=== PATIENT | male | born 1965 | race Caucasian/White ===

== ENCOUNTER → 2024-06-14 | Outpatient (REF) | payer MEDICARE, MEDICAID | LOC: LAB 13:25 | DX: K13.0 Diseases of lips (principal) ==

== ENCOUNTER → 2024-06-23 | Outpatient (CLI) | payer MEDICARE, MEDICAID | LOC: RAD 10:50 | DX: L02.11 Cutaneous abscess of neck (principal) ==

== ENCOUNTER → 2024-08-10 | Outpatient (REF) | payer MEDICARE, MEDICAID | LOC: LAB 12:17 | DX: E06.9 Thyroiditis, unspecified (principal) ==

== ENCOUNTER → 2024-09-17 | Outpatient (CLI) | payer MEDICARE, MEDICAID ==
[2024-09-17 10:22] LABS: BASO # 0.05 K/mm3 (0.02-0.10); EOS # 0.13 K/mm3 (0.04-0.40); EOS % 1.4 % (0.0-4.0); HEMATOCRIT 47.5 % (42.0-52.0); HEMOGLOBIN 13.7 g/dL (13.5-18.0); LYMPH# 1.95 K/mm3 (1.50-4.00); MEAN CELL VOLUME 85 fl (78-100); MEAN CORPUSCULAR HEMOGLOBIN 25 pg (27-31); MEAN CORPUSCULAR HGB CONC 29 g/dL (33-37); MEAN PLATELET VOLUME 10.7 fl (7.4-10.4); MONO # 0.61 K/mm3 (0.20-0.80); NEU # 6.42 K/mm3 (1.40-6.50); PLATELET COUNT 342 K/mm3 (130-400); RED BLOOD COUNT 5.56 M/mm3 (4.20-5.60); WHITE BLOOD COUNT 9.2 K/mm3 (4.8-10.8)
[2024-09-17 10:33] LABS: CALCIUM 9.3 mg/dL (8.3-10.5)
== END ==
LOC: LAB 09:35
DX: R09.02 Hypoxemia (principal)

== ENCOUNTER → 2024-10-14 | Outpatient (CLI) | payer MEDICARE, MEDICAID | LOC: LAB 13:47 | DX: E11.9 Type 2 diabetes mellitus without complications (principal) ==

== ENCOUNTER → 2024-10-18 | Outpatient (REF) | payer MEDICARE, MEDICAID | LOC: LAB 11:27 | DX: F25.0 Schizoaffective disorder, bipolar type (principal) ==

== ENCOUNTER → 2024-11-02 | Outpatient (REF) | payer MEDICARE, MEDICAID | LOC: LAB 10:43 | DX: F25.0 Schizoaffective disorder, bipolar type (principal) ==

== ENCOUNTER → 2024-11-04 | Outpatient (REF) | payer MEDICARE, MEDICAID | LOC: LAB 13:35 | DX: F25.0 Schizoaffective disorder, bipolar type (principal) ==

== ENCOUNTER → 2024-12-13 | Outpatient (REF) | payer OTHER, MEDICAID ==
[2024-12-13 11:37] LABS: BASO # 0.02 K/mm3 (0.02-0.10); EOS # 0.25 K/mm3 (0.04-0.40); EOS % 3.2 % (0.0-4.0); HEMATOCRIT 40.7 % (42.0-52.0); HEMOGLOBIN 11.8 g/dL (13.5-18.0); MEAN CELL VOLUME 85 fl (78-100); MEAN CORPUSCULAR HEMOGLOBIN 25 pg (27-31); MEAN CORPUSCULAR HGB CONC 29 g/dL (33-37); MEAN PLATELET VOLUME 10.4 fl (7.4-10.4); MONO # 0.44 K/mm3 (0.20-0.80); NEU # 4.66 K/mm3 (1.40-6.50); PLATELET COUNT 448 K/mm3 (130-400); WHITE BLOOD COUNT 7.8 K/mm3 (4.8-10.8)
[2024-12-13 11:46] LABS: ALBUMIN 3.1 g/dL (3.5-5.0)
[2024-12-13 11:48] LABS: CALCIUM 8.4 mg/dL (8.3-10.5)
[2024-12-13 11:49] LABS: TOTAL PROTEIN 7.8 g/dL (6.4-8.3)
[2024-12-13 11:50] LABS: TOTAL BILIRUBIN 0.2 mg/dL (0.2-1.2)
== END ==
LOC: LAB 11:24
PROVIDERS: Physician Assistant
DX: Z79.2 Long term (current) use of antibiotics (principal)

== ENCOUNTER → 2024-12-20 | Outpatient (REF) | payer OTHER, MEDICAID | LOC: LAB 11:34 | DX: R97.20 Elevated prostate specific antigen [PSA] (principal) ==

== ENCOUNTER → 2024-12-28 | Outpatient (CLI) | payer OTHER, MEDICAID ==
[2024-12-28 11:19] LABS: BASO # 0.02 K/mm3 (0.02-0.10); EOS # 0.17 K/mm3 (0.04-0.40); EOS % 2.4 % (0.0-4.0); HEMATOCRIT 43.5 % (42.0-52.0); HEMOGLOBIN 12.8 g/dL (13.5-18.0); LYMPH# 2.08 K/mm3 (1.50-4.00); MEAN CELL VOLUME 83 fl (78-100); MEAN CORPUSCULAR HEMOGLOBIN 25 pg (27-31); MEAN CORPUSCULAR HGB CONC 29 g/dL (33-37); MEAN PLATELET VOLUME 11.2 fl (7.4-10.4); MONO # 0.45 K/mm3 (0.20-0.80); PLATELET COUNT 234 K/mm3 (130-400); RED BLOOD COUNT 5.22 M/mm3 (4.20-5.60); RED CELL DISTRIBUTION WIDTH 16.8 % (11.5-14.5); WHITE BLOOD COUNT 7.1 K/mm3 (4.8-10.8)
[2024-12-28 11:28] LABS: ALBUMIN 3.8 g/dL (3.5-5.0); SODIUM 140 mmol/L (136-145)
[2024-12-28 11:29] LABS: CALCIUM 9.1 mg/dL (8.3-10.5)
[2024-12-28 11:30] LABS: GLUCOSE 133 mg/dL (75-110)
[2024-12-28 11:31] LABS: TOTAL PROTEIN 8.5 g/dL (6.4-8.3)
[2024-12-28 11:32] LABS: CARBON DIOXIDE 28 mmol/L (22-29); TOTAL BILIRUBIN 0.4 mg/dL (0.2-1.2)
[2024-12-28 11:36] LABS: AST-SGOT 10 U/L (5-34)
[2024-12-28 11:37] LABS: ALT/SGPT 7 U/L (0-55)
[2024-12-28 11:44] LABS: TROPONIN-I < 0.030 ng/mL (0.00-0.033)
== END ==
LOC: LAB 10:53
PROVIDERS: Family Medicine
DX: R06.02 Shortness of breath (principal); R07.9 Chest pain, unspecified

== ENCOUNTER → 2024-12-31 | Outpatient (REF) | payer OTHER, MEDICAID | LOC: AMSURD 10:41 → LAB 10:41 | DX: R97.20 Elevated prostate specific antigen [PSA] (principal); R07.9 Chest pain, unspecified; R06.00 Dyspnea, unspecified ==

== ENCOUNTER → 2025-01-14 | Outpatient (CLI) | payer OTHER, MEDICAID | LOC: LAB 15:04 | DX: E11.9 Type 2 diabetes mellitus without complications (principal) ==

== ENCOUNTER → 2025-02-03 | Outpatient (REF) | payer OTHER, MEDICAID ==
[2025-02-03 15:17] LABS: URINE APPEARANCE CLEAR (CLEAR); URINE COLOR YELLOW (YELLOW)
[2025-02-03 15:18] LABS: URINE BILIRUBIN NEGATIVE (NEGATIVE); URINE BLOOD TRACE-INTACT (NEGATIVE); URINE GLUCOSE 3+ (NEGATIVE); URINE KETONE NEGATIVE (NEGATIVE); URINE LEUKOCYTE ESTERASE NEGATIVE (NEGATIVE); URINE NITRATE NEGATIVE (NEGATIVE); URINE PROTEIN(semi-quant) NEGATIVE (NEGATIVE); URINE WBC 0-1 /hpf (0-3)
== END ==
LOC: LAB 11:17
PROVIDERS: Nurse Practitioner
DX: N39.46 Mixed incontinence (principal); F32.9 Major depressive disorder, single episode, unspecified